=== PATIENT | female | born 1980 | race Caucasian/White ===

== ENCOUNTER 2018-10-09 09:08 | Emergency (ER) | payer BC ==
[~2018-10-09] VITALS: Ht 165.1 cm; Wt 72.6 kg
--- NOTE | 2018-10-09 09:18 | NUR ---
NATALIIA DYE AT BEDSIDE FOR MSE.
[2018-10-09] MEDS ORDERED: LEVOTHYROXIN (09:19)
[2018-10-09] MEDS ORDERED: VENTOLIN HFA (09:19)
[2018-10-09] MEDS ORDERED: VALIUM (09:19)
[2018-10-09] MEDS ORDERED: HYDROCODONE (09:19)
[2018-10-09] MEDS ORDERED: PHENTERMINE (09:19)
--- NOTE | 2018-10-09 09:37 | NUR ---
Patient discharged to home in stable conditon. Written and verbal after care instructions given. Patient verbalizes understanding of instructions. PT D/C W/ PRESCRIPTIONS. ALL BELONGINGS W/ PT. PT SELF-AMBULATED W/O DIFFICULTY.
[2018-10-09 09:38] VITALS: BP 154/88
[2018-10-09 09:40] LABS: BASOPHILS % (AUTO) 0.5 % (0.0-2.0); EOSINOPHILS # (AUTO) 0.2 K/uL (0.0-0.7); EOSINOPHILS % (AUTO) 2.6 % (0.0-7.0); HEMATOCRIT 37.9 % (31.2-41.9); HEMOGLOBIN 12.5 g/dL (10.9-14.3); LYMPHOCYTES # (AUTO) 2.2 K/uL (20.0-40.0); LYMPHOCYTES % (AUTO) 35.2 % (20.5-51.5); MEAN CORPUSCULAR HEMOGLOBIN 29.5 uug (24.7-32.8); MEAN CORPUSCULAR HGB CONC 33 g/dL (32.3-35.6); MEAN CORPUSCULAR VOLUME 89.6 fL (75.5-95.3); MONOCYTES # (AUTO) 0.4 K/uL (2.0-10.0); MONOCYTES % (AUTO) 5.9 % (0.0-11.0); NEUTROPHILS # (AUTO) 3.5 K/uL (1.8-8.9); NEUTROPHILS % (AUTO) 55.8 % (38.5-71.5); PLATELET COUNT (AUTO) 286 K/uL (179-408); RED BLOOD CELL COUNT(AUTO) 4.23 MIL/uL (3.63-4.92); WHITE BLOOD COUNT (AUTO) 6.4 K/uL (3.8-11.8)
[2018-10-09 09:47] LABS: CARBON DIOXIDE 26 mmol/L (21-32); CHLORIDE 107 mmol/L (98-107); CREATININE 0.8 mg/dL (0.6-1.3); GLUCOSE 101 mg/dL (74-106); POTASSIUM 3.9 mmol/L (3.5-5.1); UREA NITROGEN, BLOOD 12 mg/dL (7-18)
[2018-10-09 09:52] LABS: ALANINE AMINOTRANSFERASE 18 U/L (14-59); ALKALINE PHOSPHATASE 60 U/L (50-136); ASPARTATE AMINOTRANSFERASE 15 U/L (15-37); BILIRUBIN,DIRECT 0.1 mg/dL (0.0-0.2); BILIRUBIN,TOTAL 0.3 mg/dL (0.2-1.0); TOTAL PROTEIN, SERUM 6.5 g/dL (6.4-8.2)
[2018-10-09 09:53] LABS: LIPASE 95 U/L (73-393)
== END 2018-10-09 09:39 | disposition home or self-care (01) ==
LOC: ER 09:08
DX: R11.0 Nausea (principal); J45.909 Unspecified asthma, uncomplicated; E03.9 Hypothyroidism, unspecified; Z79.2 Long term (current) use of antibiotics; Z79.891 Long term (current) use of opiate analgesic; Z79.899 Other long term (current) drug therapy
CPT/HCPCS: 36415; 83690; 85025; A4663

== ENCOUNTER 2019-01-30 21:33 | Emergency (ER) | payer BC ==
[~2019-01-30] VITALS: Ht 172.7 cm; Wt 105.7 kg
[~2019-01-30 21:33] MED LIST: HYDROCODONE; LEVOTHYROXIN; PHENTERMINE; VALIUM; VENTOLIN HFA
[2019-01-30] MEDS ORDERED: LEVOTHYROXINE 100 MCG TABLET (21:46)
[2019-01-30] MEDS ORDERED: SALMETEROL (21:46)
[2019-01-30] MEDS ORDERED: FLUTICASONE (21:46)
[2019-01-30] MEDS ORDERED: ALBUTEROL HFA 90 MCG INHALER (21:46)
--- NOTE | 2019-01-30 22:29 | NUR ---
DR. PAGE AT BEDSIDE FOR MSE.
[2019-01-30] MEDS ORDERED: ONDANSETRON 4 MG/2 ML VIAL ONE (22:36)
[2019-01-30] MEDS ORDERED: HYDROMORPHONE 2 MG/1 ML DISP.SYRIN ONE (22:36)
--- NOTE | 2019-01-30 22:40 | NUR ---
Patient discharged to home in stable conditon. Written and verbal after care instructions given. Patient verbalizes understanding of instructions. PATIENT LEFT WITH STABLE GAIT.
[2019-01-30 22:41] VITALS: BP 117/79
[2019-01-30] MEDS ORDERED: HYDROMORPHONE 1 MG/1 ML DISP.SYRIN IM ONE (22:45)
[2019-01-30] MEDS ORDERED: ONDANSETRON 4 MG/2 ML VIAL IM ONE (22:45)
== END 2019-01-30 22:41 | disposition home or self-care (01) ==
LOC: ER 21:35
DX: M54.5 Low back pain (principal); J45.909 Unspecified asthma, uncomplicated; E03.9 Hypothyroidism, unspecified; Z79.899 Other long term (current) drug therapy
CPT/HCPCS: 96372 ×2; 99283; J1170; J2405; A4663